=== PATIENT | female | born 1940 | race Caucasian/White ===

== ENCOUNTER 2019-01-26 20:52 | Emergency (ER) | payer MEDICARE ==
[~2019-01-26] VITALS: Ht 154.9 cm; Wt 47.6 kg
--- NOTE | 2019-01-26 21:09 | ED Abdominal Pain ---
General Chief Complaint: Lower Extremity Stated Complaint: GROIN AND LEG PAIN Source of Information: Patient Exam Limitations: No Limitations History of Present Illness Date Seen by Provider: Jan 26, 2019 Time Seen by Provider: 20:58 Initial Comments The patient is a pleasant 78-year-old female who presents for evaluation of lower abdominal discomfort. She reports a history of several episodes of diverticulitis in the past and states this feels similar. Her pain is on both the left lower quadrant and right lower quadrant. She reports a history of total abdominal hysterectomy but still has her appendix. She reports it low appetite but states this is normal for her. She denies fevers or chills, nausea or vomiting, urinary complaints, pelvic pain/bleeding/discharge, chest pain or shortness of breath, dizziness, or syncope. She is alert and oriented 4, calm, and appears to be in no distress. Timing/Duration: 12-24 Hours Severity/Quality: Moderate Location: RLQ, LLQ, Flank (right) Activities at Onset: None Modifying Factors: Improves With Analgesics (advil helped moderately last night) Associated Symptoms: Denies Symptoms Allergies and Home Medications Allergies Coded Allergies: procaine (Verified Allergy, Mild, 01/26/19) codeine (Verified Allergy, Unknown, 01/26/19) Patient Home Medication List Home Medication List Reviewed: Yes Review of Systems Review of Systems Constitutional: no symptoms reported EENTM: No Symptoms Reported Respiratory: No Symptoms Reported Cardiovascular: No Symptoms Reported Gastrointestinal: Abdominal Pain, Other (right flank pain - mild) Genitourinary: No Symptoms Reported Musculoskeletal: no symptoms reported Skin: no symptoms reported Psychiatric/Neurological: No Symptoms Reported Endocrine: No Symptoms Reported Hematologic/Lymphatic: No Symptoms Reported All Other Systems Reviewed Negative Unless Noted: Yes Past Tdinmyx-Whprlh-Chhiar Hx Past Med/Social Hx: Reviewed Nursing Past Med/Soc Hx Patient Social History Recent Foreign Travel: No Contact w/Someone Who Travel: No Physical Exam Vital Signs Vital Signs - First Documented 01/26/19 21:13 Temp 98.5 Pulse 94 Resp 16 B/P (MAP) 211/93 (132) Pulse Ox 97 O2 Delivery Room Air Capillary Refill : Height/Weight/BMI Height: '" Weight: lbs. oz. kg; BMI Method: General Appearance: WD/WN, no apparent distress HEENT: PERRL/EOMI Neck: non-tender, supple, normal inspection Respiratory: chest non-tender, lungs clear, normal breath sounds Cardiovascular: regular rate, rhythm, no edema, no JVD Gastrointestinal: soft, no organomegaly, no pulsatile mass, tenderness (mild to moderate tenderness in the left lower quadrant and right lower quadrants, soft, no guarding, no rigidity, no distention, no pulsatile mass) Extremities: normal range of motion, no pedal edema, no calf tenderness Back: normal inspection, no vertebral tenderness, CVA tenderness (R) (mild) Neurologic/Psychiatric: debate director II-XII nml as tested, no motor/sensory deficits, alert, normal mood/affect, oriented x 3 Skin: normal color, warm/dry Lymphatic: no adenopathy Progress/Results/Core Measures Results/Orders Lab Results Laboratory Tests Test 01/26/19 21:10 01/26/19 21:29 Range/Units White Blood Count 5.6 4.3-11.0 10^3/uL Red Blood Count 3.88 L 4.35-5.85 10^6/uL Hemoglobin 12.0 11.5-16.0 G/DL Hematocrit 37 35-52 % Mean Corpuscular Volume 94 80-99 FL Mean Corpuscular Hemoglobin 31 25-34 PG Mean Corpuscular Hemoglobin Concent 33 32-36 G/DL Red Cell Distribution Width 12.8 10.0-14.5 % Platelet Count 277 130-400 10^3/uL Mean Platelet Volume 9.6 7.4-10.4 FL Neutrophils (%) (Auto) 45 42-75 % Lymphocytes (%) (Auto) 37 12-44 % Monocytes (%) (Auto) 12 0-12 % Eosinophils (%) (Auto) 5 0-10 % Basophils (%) (Auto) 1 0-10 % Neutrophils # (Auto) 2.5 1.8-7.8 X 10^3 Lymphocytes # (Auto) 2.1 1.0-4.0 X 10^3 Monocytes # (Auto) 0.7 0.0-1.0 X 10^3 Eosinophils # (Auto) 0.3 0.0-0.3 10^3/uL Basophils # (Auto) 0.1 0.0-0.1 10^3/uL Sodium Level 139 135-145 MMOL/L Potassium Level 3.9 3.6-5.0 MMOL/L Chloride Level 98 98-107 MMOL/L Carbon Dioxide Level 26 21-32 MMOL/L Anion Gap 15 H 5-14 MMOL/L Blood Urea Nitrogen 16 7-18 MG/DL Creatinine 0.98 0.60-1.30 MG/DL Estimat Glomerular Filtration Rate 55 BUN/Creatinine Ratio 16 Glucose Level 97 70-105 MG/DL Calcium Level 9.6 8.5-10.1 MG/DL Corrected Calcium 9.2 8.5-10.1 MG/DL Total Bilirubin 0.3 0.1-1.0 MG/DL Aspartate Amino Transf (AST/SGOT) 20 5-34 U/L Alanine Aminotransferase (ALT/SGPT) 14 0-55 U/L Alkaline Phosphatase 48 40-136 U/L Total Protein 7.5 6.4-8.2 GM/DL Albumin 4.5 3.2-4.5 GM/DL Amylase Level 73 25-125 U/L Lipase 33 8-78 U/L Urine Color YELLOW Urine Clarity CLEAR Urine pH 7.0 5-9 Urine Specific [place] <1.005 1.016-1.022 Urine Protein NEGATIVE NEGATIVE Urine Glucose (UA) NEGATIVE NEGATIVE Urine Ketones NEGATIVE NEGATIVE Urine Nitrite NEGATIVE NEGATIVE Urine Bilirubin NEGATIVE NEGATIVE Urine Urobilinogen 0.2 NORMAL MG/DL Urine Leukocyte Esterase NEGATIVE NEGATIVE Urine RBC (Auto) NEGATIVE NEGATIVE Urine RBC NONE /HPF Urine WBC NONE /HPF Urine Squamous Epithelial Cells 0-2 /HPF Urine Crystals NONE /LPF Urine Bacteria NONE /HPF Urine Casts NONE /LPF Urine Mucus NEGATIVE /LPF Urine Culture Indicated NO My Orders Orders - MAGALI EDWARDS DO Comprehensive Metabolic Panel (01/26/19 21:03) Lipase (01/26/19 21:03) Amylase (01/26/19 21:03) Ua Culture If Indicated (01/26/19 21:03) Ed Iv/Invasive Line Start (01/26/19 21:03) Cbc With Automated Diff (01/26/19 21:03) Ct Abdomen/Pelvis W (01/26/19 21:03) Nothing By Mouth (01/27/19 Breakfast) Iohexol Injection (Omnipaque 350 Mg/Ml 1 (01/26/19 21:45) Received Contrast (Hold Metformin- Contr (01/26/19 21:45) Ns (Ivpb) (Sodium Chloride 0.9% Ivpb Bag (01/26/19 21:45) Sodium Chloride Flush (Catheter Flush Sy (01/26/19 21:45) Ketorolac Injection (Toradol Injection) (01/26/19 22:45) Cyclobenzaprine Tablet (Flexeril Tablet) (01/26/19 22:45) Medications Given in ED Current Medications Medications Dose Ordered Sig/Gila Route Start Time Stop Time Status Last Admin Dose Admin Iohexol 100 ml ONCE ONCE IV 01/26/19 21:45 01/26/19 21:46 DC 01/26/19 21:48 100 ML Sodium Chloride 10 ml NEEDED PRN IV 01/26/19 21:45 01/26/19 21:49 10 ML Sodium Chloride 100 ml ONCE ONCE IV 01/26/19 21:45 01/26/19 21:46 DC 01/26/19 21:48 40 ML Vital Signs/I&O 01/26/19 21:13 Temp 98.5 Pulse 94 Resp 16 B/P (MAP) 211/93 (132) Pulse Ox 97 O2 Delivery Room Air Progress Progress Note : Progress Note @2240 - patient and updated on lab and imaging results. The patient states that it feels better to stand than it does to sit or lie down. She states that the other day before the pain began she was sitting and watching a tractor pull for 3 hours on a metallic bench. She thinks this may have caused some of her discomfort. She'll be given a dose of Toradol and Flexeril prior to discharge. Workup today fails to reveal any emergent pathology. The patient is stable for discharge home at this time. Diagnostic Imaging Diagonstic Imaging: CT Comments Radiology no acute findings and no evidence of diverticulitis Departure Impression Primary Impression: Upper leg pain Additional Impression: Lower abdominal pain Disposition: HOME, SELF-CARE Condition: Stable Departure-Patient Inst. Referrals: [facility] (PCP) Primary Care Physician Patient Instructions: Acute Abdomen (Belly Pain), Adult (DC), Muscle and Bone Pain (DC) Add. Discharge Instructions: Follow-up with your doctor in the next 1-2 days. Take the prescribed medication as directed, as needed. Return to the ER immediately for new or worsening symptoms. Scripts Tramadol HCl (Ultram) 50 Mg Tablet 50 MG PO Q6H PRN for PAIN-MODERATE TO SEVERE for 3 Days, #12 TAB Prov: MAGALI EDWARDS DO 01/26/19 Cyclobenzaprine HCl (Cyclobenzaprine HCl) 10 Mg Tablet 10 MG PO Q6H for Muscle Cramps for 4 Days, #15 TAB Prov: MAGALI EDWARDS DO 01/26/19 MAGALI EDWARDS DO Jan 26, 2019 21:09
[2019-01-26 21:18] LABS: BASOPHILS % (AUTO) 1 % (0-10); EOSINOPHILS # (AUTO) 0.3 10^3/uL (0.0-0.3); EOSINOPHILS % (AUTO) 5 % (0-10); HEMATOCRIT 37 % (35-52); LYMPHOCYTES # (AUTO) 2.1 X 10^3 (1.0-4.0); LYMPHOCYTES % (AUTO) 37 % (12-44); MEAN CORPUSCULAR HEMOGLOBIN 31 PG (25-34); MEAN CORPUSCULAR HGB CONC 33 G/DL (32-36); MEAN CORPUSCULAR VOLUME 94 FL (80-99); MEAN PLATELET VOLUME 9.6 FL (7.4-10.4); MONOCYTES # (AUTO) 0.7 X 10^3 (0.0-1.0); MONOCYTES % (AUTO) 12 % (0-12); NEUTROPHILS # (AUTO) 2.5 X 10^3 (1.8-7.8); NEUTROPHILS % (AUTO) 45 % (42-75); PLATELET COUNT 277 10^3/uL (130-400); RED CELL DISTRIBUTION WIDTH 12.8 % (10.0-14.5); WHITE BLOOD COUNT 5.6 10^3/uL (4.3-11.0)
[2019-01-26 21:19] LABS: BASOPHILS # (AUTO) 0.1 10^3/uL (0.0-0.1)
[2019-01-26 21:38] LABS: BILIRUBIN,URINE NEGATIVE (NEGATIVE); CLARITY,URINE CLEAR; COLOR,URINE YELLOW; GLUCOSE, URINE (UA) NEGATIVE (NEGATIVE); KETONES,URINE NEGATIVE (NEGATIVE); LEUKOCYTE ESTERASE ,URINE NEGATIVE (NEGATIVE); NITRITE,URINE NEGATIVE (NEGATIVE); PROTEIN,URINE NEGATIVE (NEGATIVE); SQUAMOUS EPITHELIAL CELL,UR 0-2 /HPF; UROBILINOGEN,URINE 0.2 MG/DL (NORMAL)
[2019-01-26 21:39] LABS: ALBUMIN 4.5 GM/DL (3.2-4.5); BILIRUBIN,TOTAL 0.3 MG/DL (0.1-1.0); CALCIUM 9.6 MG/DL (8.5-10.1); CREATININE SERUM 0.98 MG/DL (0.60-1.30); POTASSIUM 3.9 MMOL/L (3.6-5.0); TOTAL PROTEIN 7.5 GM/DL (6.4-8.2)
[2019-01-26] MEDS ORDERED: HOLD METFORMIN - RECEIVED CONTRAST 20 ML VIAL IV SCH (21:45)
[2019-01-26] MEDS ORDERED: NS 100 ML (IVPB) BAG IV ONE (21:45)
[2019-01-26] MEDS ORDERED: IOHEXOL 350 MG/ML 100 ML (OMNIPAQUE 350) VIAL IV ONE (21:45)
[2019-01-26] MEDS ORDERED: CATHETER FLUSH 10 ML SYR IV PRN (21:45)
[2019-01-26] MEDS ORDERED: KETOROLAC 30 MG/ML VIAL IVP ONE (22:45)
[2019-01-26] MEDS ORDERED: CYCLOBENZAPRINE 10 MG (FLEXERIL) TAB PO SCH (22:45)
[2019-01-26] MEDS ORDERED: CYCL10TA9 PO (22:47)
[2019-01-26] MEDS ORDERED: TRAM-42 PO (22:47)
[2019-01-26 22:56] VITALS: BP 109/59
--- NOTE | 2019-01-27 06:18 | Diagnostic Imaging Report ---
PROCEDURE: CT abdomen and pelvis with contrast. TECHNIQUE: Multiple contiguous axial images were obtained through the abdomen and pelvis after administration of intravenous contrast. Auto Exposure Controls were utilized during the CT exam to meet ALARA standards for radiation dose reduction. INDICATION: Left and right lower quadrant abdominal pain. History of diverticulitis. COMPARISON: None. FINDINGS: The heart is unremarkable. The included lung bases are clear. The liver, spleen, pancreas, adrenal glands, and kidneys have a normal appearance. Retroaortic left renal vein is noted. There is no pathologically enlarged mesenteric or retroperitoneal adenopathy. The bowel loops are nondilated. Diverticulosis of the sigmoid colon is seen without evidence of acute diverticulitis. The appendix is visualized and is unremarkable. There is no free fluid or free air. There is scattered calcified aortic and iliac atherosclerotic plaque without evidence of aneurysm. The osseous structures are age-appropriate. Ureters and bladder are grossly normal. There is no free air, loculated collection, or adenopathy in the pelvis. IMPRESSION: 1. Diverticulosis without evidence of acute diverticulitis. No bowel obstruction, free fluid or free air. Agree with overnight report. Dictated by: Dictated on workstation # [id number]
== END 2019-01-26 22:56 | disposition home or self-care (01) ==
LOC: ER FS 20:54
DX: R10.32 Left lower quadrant pain (principal); R10.31 Right lower quadrant pain; M79.659 Pain in unspecified thigh; Z88.5 Allergy status to narcotic agent; Z88.4 Allergy status to anesthetic agent; Z90.710 Acquired absence of both cervix and uterus; Z87.19 Personal history of other diseases of the digestive system; Z90.49 Acquired absence of other specified parts of digestive tract
CPT/HCPCS: 36415; 74177; 80053; 81000; 82150; 83690; 85025

== ENCOUNTER 2019-04-04 10:17 | Emergency (ER) | payer MEDICARE ==
[~2019-04-04] VITALS: Ht 154.9 cm; Wt 47.5 kg
[~2019-04-04 10:17] MED LIST: CYCL10TA9 PO; TRAM-42 PO
--- NOTE | 2019-04-04 10:52 | Diagnostic Imaging Report ---
PROCEDURE: CT head and CT cervical spine without contrast. TECHNIQUE: Multiple contiguous axial images were obtained through the brain and cervical spine without the use of intravenous contrast. Sagittal and coronal reformations through the cervical spine were then performed. Auto Exposure Controls were utilized during the CT exam to meet ALARA standards for radiation dose reduction. INDICATION: Fall with head and neck injury. COMPARISON: No prior studies are available for comparison. CT HEAD: Ventricles and sulci are within normal limits. No sulcal effacement or midline shift is detected. No acute intra-axial or extra-axial hemorrhage is detected. Cisterns are patent. Visualized paranasal sinuses are clear. IMPRESSION: No acute intracranial process is detected. CT CERVICAL SPINE: There is slight reversal of the normal cervical lordotic curvature. There is minimal anterolisthesis of C3 on C4 and C4 on C5. There is severe degenerative disc disease at C5-C6 and C6-C7 levels with significant disc space narrowing and marginal osteophyte formation. There is also multilevel facet arthropathy particularly on the right side at the C3-C4, C4-C5 and C5-C6 levels. No fractures are identified. Prevertebral tissues are within normal limits. Odontoid is intact. IMPRESSION: Cervical spondylosis. No acute bony abnormality is detected. Dictated by: Dictated on workstation # [id number]
--- NOTE | 2019-04-04 11:05 | ED Head Injury ---
General Chief Complaint: Head/Cervical Problems Stated Complaint: FALL; VISION CHANGES, HEADACHE, GAIT INSTABILITY Source: patient Exam Limitations: no limitations History of Present Illness Date Seen by Provider: Apr 04, 2019 Time Seen by Provider: 10:50 Initial Comments The patient is a very pleasant 78-year-old female who presents for evaluation after a head injury took place 2 weeks ago from yesterday. She states that she and her accidentally tingled her legs and both fell and that during the fall she hit the back of her head on the hardwood floor at home. She says that for a few seconds she saw a horizontal line in her vision and a few "floaters". She states that this immediately resolved after a few seconds. She states she was having some anterolateral neck soreness after the fall as well as a posterior upper headache. She states that last week she went to see her physician and the plan was to have an outpatient CT scan of her head performed however there was no air in order and the patient was not able to get this completed. She states that her headache is still present but much more mild that was initially. She denies posterior neck pain, focal weakness or numbness, chest pain or shortness of breath, recent vision changes, nausea or vomiting, chest pain or shortness of breath, abdominal pain, or significant back discomfort. She is alert and oriented 4, calm, and appears to be in no distress at this time. She is noted to have an elevated BP upon arrival. She does not take any medications for blood pressure and states that whenever she checks her blood pressure at home and is typically "low". Occurred: other (15 days ago) Severity: mild Location: occipital Method of Injury: fell Loss of Consciousness: no loss of consciousness Allergies and Home Medications Allergies Coded Allergies: procaine (Verified Allergy, Mild, 01/26/19) codeine (Verified Allergy, Unknown, 01/26/19) Home Medications Cyclobenzaprine HCl 10 Mg Tablet, 10 MG PO Q6H Prescribed by: MAGALI EDWARDS on 01/26/192246 Tramadol HCl 50 Mg Tablet, 50 MG PO Q6H PRN for PAIN-MODERATE TO SEVERE Prescribed by: MAGALI EDWARDS on 01/26/192246 Patient Home Medication List Home Medication List Reviewed: Yes Review of Systems Review of Systems Constitutional: no symptoms reported Eyes: No Symptoms Reported Ears, Nose, Mouth, Throat: no symptoms reported Respiratory: no symptoms reported Cardiovascular: no symptoms reported Gastrointestinal: no symptoms reported Genitourinary: no symptoms reported Musculoskeletal: no symptoms reported Skin: no symptoms reported Psychiatric/Neurological: Headache Endocrine: No Symptoms Reported Hematologic/Lymphatic: No Symptoms Reported Past Eftdguh-Bkpwzj-Rscgir Hx Past Med/Social Hx: Reviewed Nursing Past Med/Soc Hx Patient Social History Recent Foreign Travel: No Recent Hopitalizations: No Seasonal Allergies Seasonal Allergies: No Past Medical History Surgeries: Yes Hysterectomy, Orthopedic Respiratory: No Cardiac: No Neurological: No Genitourinary: No Gastrointestinal: Yes Diverticulosis Musculoskeletal: Yes Back Injury Endocrine: No HEENT: No Cancer: No Psychosocial: No Integumentary: No Blood Disorders: No Physical Exam Vital Signs Vital Signs - First Documented 04/04/19 10:30 Temp 36.5 Pulse 78 Resp 18 B/P (MAP) 177/81 (113) Pulse Ox 97 O2 Delivery Room Air Capillary Refill : Height, Weight, BMI Height: 5'1.00" Weight: 105lbs. oz. 47.032249qu; BMI Method:Stated General Appearance: WD/WN HEENT: PERRL/EOMI, normal ENT inspection, pharynx normal Neck: non-tender, full range of motion, supple, normal inspection Cardiovascular: regular rate, rhythm, no edema, no murmur Respiratory: chest non-tender, lungs clear, normal breath sounds, no respiratory distress Back: normal inspection, no CVA tenderness, no vertebral tenderness Extremities: normal range of motion, non-tender, no pedal edema Psychiatric: alert, oriented x 3 Crainal Nerves: normal hearing, normal speech, PERRL Coordination/Gait: normal gait Motor/Sensory: no motor deficit, no sensory deficit Skin: normal color, warm/dry Cosme Coma Score Best Eye Response: (4) Open Spontaneously Best Verbal Response: (5) Oriented Best Motor Response: (6) Obeys Commands Progress/Results/Core Measures Results/Orders My Orders Orders - MAGALI EDWARDS DO Ct Head/Cervical Spine Wo (04/04/19 10:21) Acetaminophen Tablet (Tylenol Tablet) (04/04/19 12:00) Clonidine Tablet (Catapres Tablet) (04/04/19 12:00) Medications Given in ED Current Medications Medications Dose Ordered Sig/Gila Route Start Time Stop Time Status Last Admin Dose Admin Acetaminophen 1,000 mg ONCE ONCE PO 04/04/19 12:00 04/04/19 12:01 DC 04/04/19 12:07 1,000 MG Clonidine HCl 0.1 mg ONCE ONCE PO 04/04/19 12:00 04/04/19 12:01 DC 04/04/19 12:07 0.1 MG Vital Signs/I&O 04/04/19 10:30 Temp 36.5 Pulse 78 Resp 18 B/P (MAP) 177/81 (113) Pulse Ox 97 O2 Delivery Room Air Departure Impression Primary Impression: Closed head injury Additional Impressions: Headache Uncontrolled hypertension Disposition: HOME, SELF-CARE Condition: Stable Departure-Patient Inst. Decision time for Depature: 12:27 Referrals: NO,LOCAL PHYSICIAN (PCP/Family) Primary Care Physician Patient Instructions: Headache, Adult (DC), Minor Head Injury, Postconcussion Syndrome, High Blood Pressure (DC) Add. Discharge Instructions: He should have your blood pressure repeated within the next 24 hours and follow- up with your PCP. Return to the emergency Department immediately for new or worsening symptoms. Take Tylenol at home for pain relief as needed. Avoid bright lights and loud noises as this could make your headache worse. No chores for the next few days. MAGALI EDWARDS DO Apr 04, 2019 11:05
[2019-04-04] MEDS ORDERED: ACETAMINOPHEN 500 MG TAB (TYLENOL) PO ONE (12:00)
[2019-04-04] MEDS ORDERED: cloNIDine 0.1 MG (CATAPRES) TAB PO ONE (12:00)
[2019-04-04 12:49] VITALS: BP 134/79
== END 2019-04-04 12:55 | disposition home or self-care (01) ==
LOC: EDUNIT# 10:17 → ER FS 10:19
DX: S09.90XA Unspecified injury of head, initial encounter (principal); I10 Essential (primary) hypertension; Z88.5 Allergy status to narcotic agent; Z88.4 Allergy status to anesthetic agent; Z90.710 Acquired absence of both cervix and uterus; W01.198A Fall on same level from slipping, tripping and stumbling with subsequent striking against other object, initial encounter; Y92.009 Unspecified place in unspecified non-institutional (private) residence as the place of occurrence of the external cause
CPT/HCPCS: 70450; 72125

== ENCOUNTER → 2019-05-03 | Outpatient (CLI) | payer MEDICARE ==
--- NOTE | 2019-05-03 16:30 | Diagnostic Imaging Report ---
INDICATION: Osteopenia, postmenopausal state. COMPARISON: None available. FINDINGS: AP Spine L1-L4: [BMD (g/cm2): 1.050] [T-Score: -1.3] [Z-Score: 1.1] [BMD Previous: N/A] [BMD % Change: N/A] LT Hip Neck: [BMD (g/cm2): 0.839] [T-Score: -1.4] [Z-Score: 1.0] LT Hip Total: [BMD (g/cm2):0.872] [T-Score:-1.1] [Z-Score: 1.2] [BMD Previous: N/A] [BMD % Change: N/A] RT Hip Neck: [BMD (g/cm2):0.792] [T-Score:-1.8] [Z-Score:0.6] RT Hip Total: [BMD (g/cm2):0.810] [T-score:-1.6] [Z-Score:0.7] [BMD Previous:N/A] [BMD % Change:N/A] *Indicates significant change from prior examination based on 95% confidence level. World Health Organization criteria for BMD interpretation classify patients as Normal (T-score at or above -1.0), Osteopenic (T-score between -1.0 and -2.5) or Osteoporotic (T-score at or below -2.5). LIMITATIONS AND MODIFICATION: None. FRACTURE RISK (FRAX SCORE): The ten year probability of (%): Major Osteoporotic Fracture: [11.4] Hip Fracture: [3.1] IMPRESSION: 1. Osteopenia (Low bone mass). 2. Baseline examination. 3. See below National Osteoporosis Foundation guidelines on when to potentially initiate pharmacologic therapy. Based on the National Osteoporosis Foundation Guidelines, pharmacologic treatment should be initiated in any of the following, unless clinical conditions suggest otherwise: * Any patient with prior fragility fracture of the hip or vertebrae. A spine fracture indicates 5X risk for subsequent spine fracture and 2X risk for subsequent hip fracture. * Osteoporosis (T-score <-2.5). * Postmenopausal women and men age 50 and older with low bone mass/osteopenia (T-score between -1.0 and -2.5) by DXA and 10-year major osteoporotic fracture greater than 20% or a 10-year probability of hip fracture greater than 3%. These fracture risks are supplied above in the FRAX score, if applicable. * Clinician judgement and/or patient preferences may indicate treatment for people with 10-year fracture probabilities above or below these levels. Dictated by: Dictated on workstation # [id number]
== END ==
LOC: RAD 12:28
PROVIDERS: ATTEND Nurse Practitioner
DX: M85.89 Other specified disorders of bone density and structure, multiple sites (principal); Z78.0 Asymptomatic menopausal state
CPT/HCPCS: 77080

== ENCOUNTER 2021-03-27 09:19 | Emergency (ER) | payer MEDICARE ==
[~2021-03-27] VITALS: Ht 154.9 cm; Wt 47.9 kg
--- OUTSIDE RECORDS SUMMARY | 2021-03-27 09:29 | XMS REPORT | Clinical Summary ---
Author Author [facility] Organization [facility] Address Unknown Phone Unavailable Care Team Providers Care Suspect Artist Supervisor Name Role Phone Barbara Davis APRN PCP Allergies Comments Active Allergy Reactions Severity Noted Date Leg cramps Atorvastatin Other (See 03/26/2020 Comments) Codeine Hypotension Medium 01/10/2013 Lidocaine Rash Low 06/18/2017 Lisinopril Cough 03/26/2020 Medications End Date Status Medication Sig Dispensed Refills Start Date Active losartan (COZAAR) 25 MG Take 25 mg by 0 tablet mouth. 0 Active loratadine (CLARITIN) 10 Take 10 mg by 0 mg tablet mouth daily. Active Problems Not on file Social History Date Tobacco Use Types Packs/Day Years Used Never Smoker Smokeless Tobacco: Never Used Comments Alcohol Use Standard Drinks/Week Never 0 (1 standard drink = 0.6 o z pure alcohol) Alcohol Habits Answer Date Recorded How often do you have a drink containing alcohol? Never 09/25/2020 How many drinks containing alcohol do you have on No t asked a typical day when you are drinking? How often do you have six or more drinks on one Not asked occasion? Sex Assigned at Date Recorded Not on file Last Filed Vital Signs Reading Time Taken Comments Vital Sign 137/76 09/25/2020 2:06 PM CDT Blood Pressure 90 09/25/2020 2:06 PM CDT Pulse - - Temperature 18 09/25/2020 2:06 PM CDT Respiratory Rate - - Oxygen Saturation - - Inhaled Oxygen Concentration 47.6 kg (105 lb) 09/25/2020 2:06 PM CDT Weight 156.2 cm (5' 1.5") 09/25/2020 2:06 PM CDT Height 19.52 09/25/2020 2:06 PM CDT Body Mass Index Plan of Treatment Health Maintenance Due Date Last Done Comments Advance Directive has 1940 been filed Medicare Annual Wellness 1940 Td/Tdap# 1940 COVID-19 Vaccine (1) 1953 Zoster Vaccine# (1 of 2) 11/08/1991 Advance Directive 2006 Conversation Depression Screening 2006 PHQ-9 # Fall Risk Assessment # 2006 Osteoporosis Screening 2006 Patient Needs Advance 2006 Directive Pneumococcal Vaccine: 65+ 2006 Years (1 of 1 - PPSV23) Influenza Vaccine (#1) 2021 Results Not on filefrom Last 3 Months Insurance Type Payer Benefit Subscriber ID Effective Phone Address Plan / Dates Group Medicare MEDICARE MEDICARE [id number] 2006-P [place] PART A B [facility] OUT OF [id number] 1-P [facility] [id number] (Home) [place], [place] [address] [place], [place] C Personal/F Self 1940 [id number] (Home) [place], [place] [address] Advance Directives For more information, please contact: [phone] 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
--- NOTE | 2021-03-27 09:37 | ED General ---
General Chief Complaint: Cardiac/General Problems Stated Complaint: BP 201/104 History of Present Illness Date Seen by Provider: Mar 27, 2021 Time Seen by Provider: 09:32 Initial Comments 80-year-old female presents due to high blood pressure. Patient reports that she is under a lot of stress today and is very anxious. Patient's is very ill and she is going to [facility] to pick him and bring him home. She is very nervous about caring for him because he is coming home on 8 L of home oxygen after having chemo and being found to have blood clots in his lungs and his brain. Patient reports she took 25 mg of her Cozaar this morning which is double her normal daily dose. She complains of just general anxiety feeling but no shortness of breath, headache, vision changes, chest pain or other systemic complaints. Allergies and Home Medications Allergies Coded Allergies: procaine (Verified Allergy, Mild, 01/26/19) acetaminophen (Unverified Allergy, Unknown, 06/24/19) codeine (Verified Allergy, Unknown, 01/26/19) Patient Home Medication List Home Medication List Reviewed: Yes Cyclobenzaprine HCl (Cyclobenzaprine HCl) 10 Mg Tablet, 10 MG PO Q6H Prescribed by: MAGALI EDWARDS on 01/26/192246 Tramadol HCl (Ultram) 50 Mg Tablet, 50 MG PO Q6H PRN for PAIN-MODERATE TO SEVERE Prescribed by: MAGALI EDWARDS on 01/26/192246 Review of Systems Review of Systems Constitutional: No chills, No fever Respiratory: No cough, No short of breath Cardiovascular: No chest pain, No edema Musculoskeletal: no symptoms reported Skin: no symptoms reported Psychiatric/Neurological: See HPI Past Feasqje-Rbgqwd-Dilzkp Hx Seasonal Allergies Seasonal Allergies: Yes Past Medical History Surgeries: Yes (bladder pin-up) Hysterectomy, Orthopedic Respiratory: No Cardiac: No Neurological: No Genitourinary: No Gastrointestinal: Yes Diverticulosis Musculoskeletal: Yes Back Injury Endocrine: No HEENT: No Cancer: No Psychosocial: No Integumentary: No Blood Disorders: No Physical Exam Vital Signs Capillary Refill : Height, Weight, BMI Height: 5'1.00" Weight: 105lbs. oz. [id number]; 19.00 BMI Method:Stated General Appearance: Anxious HEENT: PERRL/EOMI Respiratory: Lungs Clear, Normal Breath Sounds Cardiovascular: Regular Rate, Rhythm, No Edema Gastrointestinal: Non Tender, Soft Back: Normal Inspection Extremity: Normal Capillary Refill, Normal Inspection, Normal Range of Motion Neurologic/Psychiatric: Alert, Oriented x3 Skin: Normal Color, Warm/Dry Progress/Results/Core Measures Suspected Sepsis SIRS Temperature: Pulse: Respiratory Rate: Blood Pressure / Mean: Results/Orders Vital Signs/I&O Capillary Refill : Progress Note : Progress Note Patient blood pressure improved as patient relaxed. No treatment was indicated. Discussed with her stress relieving techniques in the not monitor her blood pressure too much today due to her increased stress in her life. Patient is feeling much better and is relaxed is ready be discharged home Departure Impression Primary Impression: Reaction, situational, acute, to stress Disposition: 01 HOME, SELF-CARE Condition: Stable Departure-Patient Inst. Referrals: KAREN SOTO APRN (PCP) Primary Care Physician [facility] (Family) Primary Care Physician Patient Instructions: Stress Add. Discharge Instructions: Follow-up with Dr. Roger as needed All discharge instructions reviewed with patient and/or family. Voiced understanding. ELIGIO PAUL DO Mar 27, 2021 09:36
[2021-03-27 10:10] VITALS: BP 156/67
== END 2021-03-27 10:16 | disposition home or self-care (01) ==
LOC: EDUNIT# 09:19 → ER FS 09:21
DX: F43.0 Acute stress reaction (principal)
CPT/HCPCS: 99281

== ENCOUNTER 2021-04-15 20:39 | Emergency (ER) | payer MEDICARE ==
--- NOTE | 2021-04-15 20:48 | ED General ---
General Stated Complaint: HIGH BP History of Present Illness Date Seen by Provider: Apr 15, 2021 Time Seen by Provider: 20:43 Initial Comments 80 yo female with BP concerns, pt reports that when she got up this morning, she checked her blood pressure. It was slightly elevated so she got anxious. pt took an extra bp medication, took again probably 12 times through out day and kept going up. pt took 1 or 2 more extra blood pressure medications but continues to be very anxious about the reading. Patient did not have any phy sical symptoms. Patient has had a similar episode when I saw her due to her being very anxious and under some stress. Allergies and Home Medications Allergies Coded Allergies: procaine (Verified Allergy, Mild, 01/26/19) acetaminophen (Unverified Allergy, Unknown, 06/24/19) codeine (Verified Allergy, Unknown, 01/26/19) Patient Home Medication List Home Medication List Reviewed: Yes Cyclobenzaprine HCl (Cyclobenzaprine HCl) 10 Mg Tablet, 10 MG PO Q6H Prescribed by: MAGALI EDWARDS on 01/26/192246 Tramadol HCl (Ultram) 50 Mg Tablet, 50 MG PO Q6H PRN for PAIN-MODERATE TO SEVERE Prescribed by: MAGALI EDWARDS on 01/26/192246 Review of Systems Review of Systems Constitutional: No chills, No fever Respiratory: No cough, No short of breath Cardiovascular: No palpitations Gastrointestinal: No abdominal pain, No nausea, No vomiting Genitourinary: no symptoms reported Musculoskeletal: no symptoms reported Skin: no symptoms reported Psychiatric/Neurological: Anxiety Hematologic/Lymphatic: No Symptoms Reported Past Ypoiyfz-Jcoatr-Faxzsk Hx Immunizations Up To Date First/Initial COVID19 Vaccinat: Jul 2020 Second COVID19 Vaccination Raj: August 2020 Seasonal Allergies Seasonal Allergies: Yes Past Medical History Surgery/Hospitalization HX: HTN Surgeries: Yes (bladder pin-up) Hysterectomy, Orthopedic Respiratory: No Cardiac: No Neurological: No Genitourinary: No Gastrointestinal: Yes Diverticulosis Musculoskeletal: Yes Back Injury Endocrine: No HEENT: No Cancer: No Psychosocial: No Integumentary: No Blood Disorders: No Physical Exam Vital Signs Vital Signs - First Documented 04/15/21 20:43 Pulse 102 Resp 18 B/P (MAP) 199/88 (125) Pulse Ox 97 O2 Delivery Room Air Capillary Refill : Height, Weight, BMI Height: 5'1.00" Weight: 105lbs. oz. 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 Patient's elevated blood pressure is likely a result of her anxiety and multiple times checking it and very anxious when it gets checked. Patient has a normal physical exam with no real complaints. Patient had a similar episode when she was under some acute situational stress and her blood pressure came down into the 130s without any treatment when she relaxed. I did discuss acceptable blood pressures with her. I discussed that if she has a systolic in the 140s or 150s at her age that is acceptable especially when she states that she sometimes has low blood pressures due to her medication if she takes it daily. We once again talked about relaxation techniques. I did offer to allow her to set her relaxant monitor her blood pressure. She felt however she is much more relaxed and that she is ready go home. I discussed with her to limit having times she checks her blood pressure and did not get too worried about an abnormal number occasionally since it is a multifactorial reason. If it consistently stays up then she can follow-up with her primary care provider and make adjustments. Patient stable and discharged Departure Impression Primary Impression: Blood pressure check Disposition: 01 HOME, SELF-CARE Condition: Stable Departure-Patient Inst. Referrals: KAREN SOTO APRN (PCP) Primary Care Physician [facility] (Family) Primary Care Physician Patient Instructions: Controlling Your Blood Pressure Through Lifestyle Add. Discharge Instructions: follow up with your primary care provider as needed. ELIGIO PAUL DO Apr 15, 2021 20:48
[2021-04-15 20:54] VITALS: BP 199/88
== END 2021-04-15 20:55 | disposition home or self-care (01) ==
LOC: EDUNIT# 20:39 → ER FS 20:40
DX: I10 Essential (primary) hypertension (principal)
CPT/HCPCS: 99281